=== PATIENT | male | born 1990 | race African-American/Black ===

== ENCOUNTER 2020-11-12 20:41 | Emergency (ER) | payer OTHER, SELFPAY ==
--- NOTE | ~2020-11-12 | XR_ITS ---
EXAMINATION: XR chest 2V DATE: 11/12/2020 21:02 INDICATION: Shortness of breath TECHNIQUE: PA and lateral views of the chest are obtained. COMPARISON: 10/16/2014 FINDINGS: The lungs are free of acute opacities. There is no pleural effusion or pneumothorax. The ca rdiomediastinal silhouette is normal. The visualized bones and soft tissues are unremarkable. IMPRESSION: 1. No acute cardiopulmonary abnormality. Reviewed, dictated and finalized at location A.
[2020-11-12 20:43] VITALS: BP 161/110; PULSE 109; RESP 18; TEMP 36.2; O2SAT 100
--- NOTE | 2020-11-12 20:47 | ECG_ITS ---
Measurements Intervals [place] Rate: 101 P: 60 MI: 161 QRS: -5 QRSD: 104 T: 29 QT: 332 QTc: 431 Interpretive Statements SINUS TACHYCARDIA POSSIBLE LEFT ATRIAL ENLARGEMENT INCOMPLETE RIGHT BUNDLE BRANCH BLOCK DELAYED PRECORDIAL R/S TRANSITION MINIMAL Q WAVES- HIGH LATERAL LEADS BORDERLINE T WAVE ABNORMALITY- ANT/INF LEADS BORDERLINE ECG Electronically Signed On 11-13-2020 8:30:46 CDT by Filemon Venegas D.O.
[2020-11-12 22:50] LABS: Basophils Percent Auto 0.3 % (0.2-1.2); Eosinophils Absolute Auto 0.2 K/mm3 (0-0.3); Eosinophils Percent Auto 1.9 % (0-4.4); Hematocrit 43.5 % (42.0-52.0); Hemoglobin 14.6 g/dL (14.0-18.0); Immature Granulocyte Absolute 0.03 K/mm3 (0.00-0.031); Immature Granulocyte Percent A 0.3 % (0-0.5); Lymphocytes Absolute Auto 2.04 K/mm3 (0.9-3.2); Lymphocytes Percent Auto 22.6 % (18.3-44.2); Mean Corpuscular HGB Conc 33.6 g/dl (32-36); Mean Corpuscular Volume 92.4 fl (80-100); Mean Platelet Volume 9.1 fl (7.4-10.4); Monocytes Absolute Auto 0.8 K/mm3 (0.1-0.6); Monocytes Percent Auto 8.6 % (2.6-8.5); Neutrophils Percent Auto 66.3 % (45.5-73.1); Platelet Count Result 192 k/mm3 (150-375); Red Blood Count 4.71 M/mm3 (4.6-6.20); Red Cell Distribution Width 13.5 % (11.5-14.5)
--- NOTE | 2020-11-12 22:50 | PC.NURSE ---
1st call for room no answer from [facility]
[2020-11-12 22:59] LABS: Anion Gap 11 mmol/L (8-16); Blood Urea Nitrogen 9 mg/dL (9-20); Calcium 9.7 mg/dL (8.4-10.2); Carbon Dioxide 23 mmol/L (22-30); Chloride 106 mmol/L (98-107); Estimated CRCL calculation 139 ml/min; Estimated Glomerular Filt Rate > 60; Glucose 91 mg/dL (65-110); Potassium 4.3 mmol/L (3.4-5.0); Sodium 140 mmol/L (137-145)
--- NOTE | 2020-11-12 23:32 | ED.GENADULT ---
HPI - General Adult General Chief complaint: Shortness of Breath/Dyspnea Stated complaint: chest pain, sob Time Seen by Provider: 11/12/20 23:16 History of Present Illness HPI narrative: Patient is a 30-year-old gentleman who presents the emergency department with chief complaint of shortness of breath. Patient reports that this evening he was outside standing on the porch minding his own business drinking a beer and had sudden onset of a feeling of shortness of breath. The patient states it lasted for a little while and subsequently resolved. The patient states currently he feels back to normal the patient denies chest pain denies current shortness of breath denies any additional swelling in his lower extremities he does have history of varicose veins on his left lower extremity which she wears a compression stocking. Patient reports he has not been vaccinated for Covid reports that has not had a fever chills or productive cough. The patient does report that he smokes cigarettes Related Data Allergies Allergy/AdvReac Type Severity Reaction Status Date / Time No Known Allergies Allergy Verified 09/15/18 09:20 Review of Systems Review of Systems: A 10 system review of systems was completed on the patient and is negative except for what is stated in the HPI. Nursing and ancillary documentation was reviewed. Exam Narrative: GENERAL: Well-appearing, well-nourished, and in no acute distress. HEAD: Normocephalic, atraumatic. EYES: PERRLA and EOMI. ENT: Nares clear, no rhinorrhea or epistaxis. Mucous membranes moist. NECK: Supple. CHEST: Clear to auscultation. No respiratory distress. HEART: Regular rate and rhythm. No murmur heard. Normal peripheral pulses. ABDOMEN: Soft, nontender, nondistended, normal active bowel sounds. EXTREMITIES: Normal range of motion. No edema. SKIN: Warm, dry, no rash. NEURO: No focal deficits. Alert and oriented x3. PSYCH: Normal mood and affect. Course Vital Signs Vital signs: Vital Signs Temperature 36.2 C L 11/12/20 20:43 Pulse Rate 109 H 11/12/20 20:43 Respiratory Rate 18 11/12/20 20:43 Blood Pressure 161/110 H 11/12/20 20:43 Pulse Oximetry 100 11/12/20 20:43 Temperature 36.2 C L 11/12/20 20:43 Pulse Rate 109 H 11/12/20 20:43 Respiratory Rate 18 11/12/20 20:43 Blood Pressure 161/110 H 11/12/20 20:43 Pulse Oximetry 100 11/12/20 20:43 Medical Decision Making Vital Signs Vital Signs: Vital Signs Temperature 36.2 C L 11/12/20 20:43 Pulse Rate 109 H 11/12/20 20:43 Respiratory Rate 18 11/12/20 20:43 Blood Pressure 161/110 H 11/12/20 20:43 Pulse Oximetry 100 11/12/20 20:43 Temperature 36.2 C L 11/12/20 20:43 Pulse Rate 109 H 11/12/20 20:43 Respiratory Rate 18 11/12/20 20:43 Blood Pressure 161/110 H 11/12/20 20:43 Pulse Oximetry 100 11/12/20 20:43 Lab Data Result diagrams: 11/12/20 22:34 11/12/20 22:34 Labs: Lab Results 11/12/20 11/12/20 11/12/20 Range/Units 22:30 22:34 22:34 WBC 9.0 (4.5-10.0) K/mm3 RBC 4.71 (4.6-6.20) M/mm3 Hgb 14.6 (14.0-18.0) g/dL Hct 43.5 (42.0-52.0) % MCV 92.4 (80-100) fl MCH 31.0 (26-34) pg MCHC 33.6 (32-36) g/dl RDW 13.5 (11.5-14.5) % Plt Count 192 (150-375) k/mm3 MPV 9.1 (7.4-10.4) fl Immature Gran % (Auto) 0.3 (0-0.5) % Neut % (Auto) 66.3 (45.5-73.1) % Lymph % (Auto) 22.6 (18.3-44.2) % [place] % (Auto) 8.6 H (2.6-8.5) % Eos % (Auto) 1.9 (0-4.4) % Baso % (Auto) 0.3 (0.2-1.2) % Lymph # (Auto) 2.04 (0.9-3.2) K/mm3 [place] # (Auto) 0.8 H (0.1-0.6) K/mm3 Eos # (Auto) 0.2 (0-0.3) K/mm3 Baso # (Auto) 0.0 (0.0-0.1) K/mm3 Abs Immat Gran (auto) 0.03 (0.00-0.031) K/mm3 Absolute Neuts (auto) 6.0 (1.3-6.7) K/mm3 Absolute Nucleated RBC 0.0 (0.0-0.012) K/mm3 Nucleated RBC % 0.0 (0.0-0.2) % D-Dimer (<0.48) ug/mL Sodium 140 (137-145) mmol/L Po
--- NOTE | 2020-11-12 23:35 | PC.NURSE ---
called Lab to add on D Dimer and Trop Baseline. Spoke to Rani
[2020-11-12 23:45] LABS: Troponin I < 0.012 ng/mL (0.000-0.034)
[2020-11-12 23:48] LABS: D Dimer 0.27 ug/mL (<0.48)
== END 2020-11-13 01:43 | disposition home or self-care (01) ==
PROVIDERS: Emergency Provider Emergency Medicine
DX: R06.00 Dyspnea, unspecified (principal); R00.0 Tachycardia, unspecified; R94.31 Abnormal electrocardiogram [ECG] [EKG]
CPT/HCPCS: 36415; 71046; 80048; 84484; 85025; 85380; 93005; 99284

== ENCOUNTER 2022-01-22 14:58 | Emergency (ER) | payer OTHER, SELFPAY ==
[2022-01-22 15:09] VITALS: BP 146/102; PULSE 103; RESP 18; TEMP 36.9; O2SAT 98
--- NOTE | 2022-01-22 16:03 | ED.URI ---
HPI - URI/Sore Throat General Chief Complaint: Upper Respiratory Infection Stated Complaint: runny nose, left side of face swollen Time Seen by Provider: 01/22/22 16:04 Source: patient, RN notes reviewed and old records reviewed Mode of arrival: ambulatory Limitations: no limitations History of Present Illness HPI Narrative: 31-year-old male who presents to [facility] with complaints of runny nose and sinus congestion since Friday with no cough or any fevers. This morning patient awoke and the left side of his face was swollen.Patient upon examination has upper dental molar 4th back which is broken on left upper area with redness and swelling of gum around tooth, missing teeth noted also to area. Patient does not complain of dental pain at this time. MD elicited complaint: rhinorrhea, nasal congestion and other (left side of face swollen) Onset (ago): day(s) (4 days of sinus congestion, this am facial swelling) Treatments prior to arrival: none Related Data Allergies Allergy/AdvReac Type Severity Reaction Status Date / Time No Known Allergies Allergy Verified 01/22/22 15:21 Review of Systems Review of Systems: CONSTITUTIONAL: Denies malaise, chills, sweats, or fever. EYES: Denies visual changes, redness, or discharge. ENT: Reports rhinorrhea, congestion, no sinus pain, no otalgia or sore throat, left sided facial swelling. CARDIOVASCULAR: Denies chest pain, palpitations, or edema. RESPIRATORY: Reports cough.? Denies dyspnea. GASTROINTESTINAL: Denies abdominal pain, nausea, vomiting, diarrhea SKIN: Denies rash or itching. MUSCULOSKELETAL: Denies myalgia. NEUROLOGIC: Denies headache. All systems reviewed & are unremarkable except as noted in HPI and below PMFSH Past Medical History Medical History (Updated 01/24/22 @ 22:49 by Brianna Skelton NP) Seizures Social History Social History (Updated 01/24/22 @ 22:51 by Brianna Skelton NP) Social History: current smoker Smoking status: Current every day smoker Alcohol intake: current Substance use type: does not use Living arrangements: with family Gender identity (if verbalized by the patient): Male Comments At time of signature, agree with nursing past medical, surgical, social and family history. There is no relevant family history pertinent to the presenting complaint Exam Narrative: GENERAL: Well-appearing, well-nourished, and in no acute distress. HEAD: Normocephalic EYES: PERRLA, conjunctivae clear ENT: Nares clear, turbinates edematous and erythematous, clear discharge. Mucous membranes moist. TM pearly barba with good light reflex bilaterally; no tragal tenderness. Oropharynx erythematous without lesions. Tonsils not enlarged and without exudate, no drooling, no hoarseness, no trismus, uvula midline.broken tooth 4th back upper molar with redness and swelling of gum and facial swelling, other missing teeth to region. NECK: Supple. No lymphadenopathy CHEST: Clear to auscultation, breath sounds equal. No wheezing, rhonchi, rales, or stridor. No respiratory distress, speaks in full sentences. HEART: Regular rate and rhythm. No murmur heard. SKIN: Warm, dry, no rash. NEURO: Alert and oriented x3. PSYCH: Normal mood and affect Course Course Emergency Course: Patient is aware of diagnosis, understands and agrees to treatment plan.? Anticipatory guidance given.? Patient agrees to follow-up as directed and is aware of reasons to seek care at the emergency department. Portions of this record may have been created with voice recognition software Level of Care: Express Care Visit Vital Signs Vital signs: Vital Signs Temperature 36.9 C 01/22/22 15:09 Pulse Rate 103 H 01/22/22 15:09 Respiratory Rate 18 01/22/22 15:09 Blood Pressure 146/102 H 01/22/22 15:09 Pulse Oximetry 98 01/22/22 15:09 Oxygen Delivery Room Air 01/22/22 15:09 Temperature 36.9 C 01/22/22 15:09 Pulse Rate 103 H 01/22/22 15:09 Res
== END 2022-01-22 16:26 | disposition home or self-care (01) ==
PROVIDERS: Emergency Provider Registered Nurse
DX: K04.7 Periapical abscess without sinus (principal); F17.210 Nicotine dependence, cigarettes, uncomplicated
CPT/HCPCS: 99213; G0463

== ENCOUNTER 2024-01-08 14:00 | Outpatient (CLI) | payer OTHER, SELFPAY ==
--- NOTE | ~2024-01-08 | MR_ITS ---
EXAMINATION: MR brain/brain stem wo con DATE: 01/08/2024 14:47 INDICATION: Seizures TECHNIQUE: Magnetic resonance imaging (MRI) of the brain and brainstem was performed without intraven ous contrast. Sequences included sagittal T1-weighted SE, axial diffusion-weighted FS SE and axial 3D SWAN. Apparent diffusion coefficient (ADC) maps were created. The patient terminated the study due t o claustrophobia prior to obtaining the planned axial T1-weighted FSE, axial T2-weighted FLAIR and ax ial T2-weighted FSE sequences. COMPARISON: None. FINDINGS: There are no areas of restricted diffusion to suggest acute infarction. No intracranial hemorrhage or abnormal intracranial mass lesion. The ventricles are symmetric and normal in size. There are no abn ormal extra-axial fluid collections. Visualized orbits and soft tissues are unremarkable. IMPRESSION: 1. Limited MRI of the brain which was terminated prior to completion of the standard sequences of jody ging due to patient claustrophobia. The obtained images are unremarkable with no acute intracranial p rocess or evident etiology for reported seizures. Reviewed, dictated and finalized at location A. IMPRESSION: 1. Limited MRI of the brain which was terminated prior to completion of the sta ndard sequences of imaging due to patient claustrophobia. The obtained images a re unremarkable with no acute intracranial process or evident etiology for repo rted seizures.
== END 2024-01-08 14:01 | disposition home or self-care (01) ==
LOC: ANHIMG 14:04
PROVIDERS: Visit Provider Psychiatry & Neurology Neurology
DX: G40.909 Epilepsy, unspecified, not intractable, without status epilepticus (principal); Z87.828 Personal history of other (healed) physical injury and trauma
CPT/HCPCS: 70551

== ENCOUNTER 2024-01-11 02:31 | Emergency (ER) | payer OTHER, SELFPAY ==
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
[2024-01-11 02:40] VITALS: BP 140/106; PULSE 86; RESP 14; TEMP 36.3; O2SAT 100
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
--- NOTE | 2024-01-11 02:55 | PC.NURSE ---
Patient being taken to ct at this time while on monitor.
[2024-01-11 02:57] LABS: Basophils Percent Auto 0.4 % (0.2-1.2); Eosinophils Absolute Auto 0.2 K/mm3 (0-0.3); Eosinophils Percent Auto 2.2 % (0-4.4); Hemoglobin 14.1 g/dL (14.0-18.0); Immature Granulocyte Absolute 0.03 K/mm3 (0.00-0.031); Immature Granulocyte Percent A 0.3 % (0-0.5); Lymphocytes Absolute Auto 4.57 K/mm3 (0.9-3.2); Lymphocytes Percent Auto 41.2 % (18.3-44.2); Mean Corpuscular HGB Conc 33.6 g/dl (32-36); Mean Corpuscular Hemoglobin 31.3 pg (26-34); Mean Corpuscular Volume 93.3 fl (80-100); Mean Platelet Volume 8.9 fl (7.4-10.4); Monocytes Absolute Auto 0.8 K/mm3 (0.1-0.6); Monocytes Percent Auto 6.9 % (2.6-8.5); Neutrophils Absolute Auto 5.4 K/mm3 (1.3-6.7); Platelet Count Result 187 k/mm3 (150-375); Red Cell Distribution Width 13.1 % (11.5-14.5); White Blood Count 11.1 K/mm3 (4.5-10.0)
[2024-01-11 03:03] VITALS: RESP 16; O2SAT 100
[2024-01-11 03:03] LABS: Estimated CRCL calculation 98 ml/min; Estimated Glomerular Filt Rate > 60
[2024-01-11 03:07] LABS: INR 0.9; Prothrombin Time 13.1 Seconds (11.1-14.7)
[2024-01-11 03:08] LABS: Partial Thromboplastin Time 28.3 Seconds (22.3-36.8)
[2024-01-11 03:17] VITALS: BP 120/89; PULSE 89; RESP 17; O2SAT 99
[2024-01-11 03:24] LABS: Alanine Aminotransferase 34 U/L (6-50); Albumin Level 4.7 g/dL (3.5-5.1); Alkaline Phosphatase 111 U/L (38-126); Anion Gap 13 mmol/L (4-12); Aspartate Amino Transferase 27 U/L (17-59); Bilirubin,Total 0.2 mg/dL (0.2-1.3); Blood Urea Nitrogen 13 mg/dL (9-20); Calcium 8.8 mg/dL (8.4-10.2); Carbon Dioxide 22 mmol/L (22-30); Chloride 101 mmol/L (98-107); Estimated CRCL calculation 143 ml/min; Estimated Glomerular Filt Rate > 60; Glucose 96 mg/dL (65-110); Potassium 3.7 mmol/L (3.4-5.0); Sodium 136 mmol/L (137-145)
[2024-01-11] MEDS: ceFAZolin 2 GM/D5W 50 ML 2 GM/50 ML BAG IVPB (03:26)
[2024-01-11] MEDS: TETANUS,DIPHTHERIA,AC PERTUSSIS ADULT (0.5 ML) BOOSTRIX IM (03:26)
--- NOTE | 2024-01-11 03:31 | PC.NURSE ---
Patient received tetanus shot and Ancef started by flight crew prior to leaving.
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
== END 2024-01-11 03:31 | disposition short-term general hospital (02) ==
LOC: ANHED 03:20
PROVIDERS: Emergency Provider Student in an Organized Health Care Education/Training Program
DX: S29.9XXA Unspecified injury of thorax, initial encounter (principal); X99.9XXA Assault by unspecified sharp object, initial encounter; F17.210 Nicotine dependence, cigarettes, uncomplicated; Z23 Encounter for immunization
CPT/HCPCS: 36415; 71045; 71260; 80053; 85025; 85610; 85730; 86850; 86900; 86901; 90471; 90715; 96374; 99285; J0690; Q9967